=== PATIENT | male | born 1960 | race Caucasian/White ===

== ENCOUNTER 2021-07-03 10:00 | Emergency (ER) | payer OTHER ==
[2021-07-03 10:27] LABS: BASOPHIL 0.4 % (0-2); EOSINOPHIL 2.1 % (0-5); HCT 44.5 % (42.0-52.0); HGB 14.7 g/dl (13.2-18.0); MCV 96.9 fL (78.0-100.0); MONOCYTE 1.8 % (0-12); NEUTROPHIL 51.8 % (41-80); NRBC 0; PLT 197 K/uL (150-400); RBC 4.59 M/uL (4.70-6.00); RDW 12.7 % (11.5-14.0); WBC 17.4 K/uL (4.0-10.5)
[2021-07-03 10:29] LABS: INR 1.56 (0.9-1.2); LYMPHOCYTE 41.4 % (15-48); PROTHROMBIN TIME 17.9 SECONDS (11.8-13.4)
[2021-07-03 10:36] LABS: ALBUMIN 3.1 g/dL (3.4-5.0); BILIRUBIN - TOTAL 0.5 mg/dL (0.2-1.0); BUN/CREAT RATIO (CALC) 19.3 RATIO; CREATININE 0.83 mg/dL (0.67-1.17); GLOBULIN (CALCULATION) 2.9 g/dL; POTASSIUM 3.1 mmol/L (3.5-5.1)
[2021-07-03 10:43] LABS: BILIRUBIN NEGATIVE (NEGATIVE); BLOOD 3+ Ery/uL (NEGATIVE); COLOR YELLOW (YELLOW); GLUCOSE (U) 3+ mg/dL (NORMAL); LEUKOCYTES NEGATIVE Leu/uL (NEGATIVE); NITRITE NEGATIVE (NEGATIVE); PROTEIN 3+ mg/dL (NEGATIVE); SPECIFIC GRAVITY >=1.030 (1.001-1.030); UROBILINOGEN 0.2 mg/dL (0.2-1.0)
[2021-07-03 10:45] LABS: CLARITY CLOUDY (CLEAR)
[2021-07-03 10:46] LABS: PTT 48.5 SECONDS (24.4-34.7)
[2021-07-03 10:49] LABS: LACTIC ACID 8.8 mmol/L (0.4-1.9)
[2021-07-03 10:49] LABS: BACTERIA 1+; MUCOUS MODERATE; SPERM PRESENT
[2021-07-03 10:56] LABS: CORONAVIRUS 2019 SARS-COV-2 NEGATIVE (NEGATIVE); INFLUENZA A NAA NEGATIVE (NEGATIVE)
[2021-07-03 12:50] LABS: FT4 (FREE T4) 1.1 ng/dL (0.76-1.46)
== END 2021-07-03 15:35 | disposition other institution (70) ==
LOC: FER 10:00
PROVIDERS: Internal Medicine
DX: I46.9 Cardiac arrest, cause unspecified (principal); I21.4 Non-ST elevation (NSTEMI) myocardial infarction; F17.210 Nicotine dependence, cigarettes, uncomplicated; Z20.822 Contact with and (suspected) exposure to COVID-19
CPT/HCPCS: 36415; 36600; 70450; 71045; 71250; 80053; 81001; 82550; 82553; 82803; 83605; 83880; 84145; 84439; 84443; 84484; 85025; 85610; 85730; 87040; 87088; 87186; 93005; 96365; 96366; 96367; 96375; J0610; J1644; J2543; J2704; J3010; J3370; J3480; J7030; J7050; U0002